=== PATIENT | male | born 1995 | race Caucasian/White ===

== ENCOUNTER → 2016-09-13 | Outpatient (CLI) | payer OTHER ==
--- NOTE | 2016-09-13 08:44 | Diagnostic Imaging Report ---
CLINICAL INDICATION: Patient with right upper quadrant epigastric pain, nausea, and diarrhea. Exam: Right upper quadrant ultrasound. Comparison: None. Findings: There is a large amounts of bowel gas overlying the right upper quadrant epigastric region which limits evaluation. Limited visualization of portions of the pancreatic tail due to overlying bowel gas. The remainder of the visualized pancreas is unremarkable. Visualized portions of the abdominal aorta and IVC are unremarkable. The liver parenchyma is homogenous with smooth liver surface. There is no liver mass. The liver measures 16.5 cm in craniocaudal dimension. There is no intrahepatic or extrahepatic ductal dilation. The common bile duct measures 3.4 mm. There is hepatopedal flow involving the main portal vein. The gallbladder is fluid distended with no stones or sludge seen. There is no gallbladder wall thickening or pericholecystic fluid. Gallbladder wall measures 2.2 mm. There is no sonographic Orosco sign. The right kidney has normal echogenicity, size, shape and cortical thickness with no hydronephrosis or stones. The right kidney measures 11.8 cm in craniocaudal dimension. There is no abdominal ascites. IMPRESSION: Limited exam due to overlying bowel gas obscuring some portions of this exam. Otherwise unremarkable right upper quadrant ultrasound. Dictated by: Dictated on workstation # [id number]
== END ==
LOC: RAD 07:11
PROVIDERS: ATTEND Family Medicine
DX: R10.11 Right upper quadrant pain (principal)
CPT/HCPCS: 76705